=== PATIENT | male | born 1990 ===

== ENCOUNTER 2019-06-20 10:52 | Emergency (ER) | payer OTHER ==
[2019-06-20 11:12] VITALS: BP 108/65
[2019-06-20] MEDS ORDERED: Ibuprofen TAB* 600 MG PO ONE (11:31)
[2019-06-20] MEDS ORDERED: Tetan/Diph/Pertus SYR(Tdap)* 0.5 ML SYR(BOOSTRIX) use SYR contains LATEX IM ONE (11:31)
[2019-06-20] MEDS ORDERED: Lidocaine 1% MPF ** 5 ML VIAL INJ ONE (11:32)
--- NOTE | 2019-06-20 11:41 | UC ---
Hand/Wrist HPI - HPI Summary HPI Summary: The patient is a 28 yo male who sustained a laceration to the dorsum of his right index finger with a thread grinder. He was unaware it was plugged in ? last Td He is right handed - History Of Current Complaint Chief Complaint: UCLaceration Stated Complaint: WC-FOURTH FINGER LACERATION RT HAND Time Seen by Provider: 06/20/19 11:25 Hx Obtained From: Patient Onset/Duration: Sudden Onset Severity Initially: Mild Severity Currently: Mild Pain Intensity: 4 Pain Scale Used: 0-10 Numeric Character Of Pain: Sharp Aggravating Factor(s): Movement Alleviating Factor(s): Rest Related History: Occupational Injury, Dominant Hand Right Hands: 1 - laceration - Allergies/Home Medications Allergies/Adverse Reactions: Allergies Allergy/AdvReac Type Severity Reaction Status Date / Time Penicillins Allergy Hives/Diff. Verified 06/20/19 11:07 Breathing/I tching Home Medications: Home Medications NK [No Home Medications Reported] 06/20/19 [History Confirmed 06/20/19] PMH/Surg Hx/FS Hx/Imm Hx Previously Healthy: Yes Endocrine History: Dyslipidemia - Surgical History Surgical History: None - Family History Known Family History: Positive: Cardiac Disease, Hypertension, Diabetes - Social History Alcohol Use: Rare Substance Use Type: Marijuana Substance Use Comment - Amount & Last Used: daily Smoking Status (MU): Heavy Every Day Tobacco Smoker Type: Cigarettes Amount Used/How Often: 1/2 PPD - Immunization History Most Recent Tetanus Shot: unknown Review of Systems All Other Systems Reviewed And Are Negative: Yes Constitutional: Positive: Negative Skin: Positive: Negative Eyes: Positive: Negative ENT: Positive: Negative Respiratory: Positive: Negative Cardiovascular: Positive: Negative Gastrointestinal: Positive: Negative Genitourinary: Positive: Negative Motor: Positive: Negative Neurovascular: Positive: Negative Musculoskeletal: Positive: Negative Neurological: Positive: Negative Psychological: Positive: Negative Physical Exam Triage Information Reviewed: Yes Appearance: Well-Appearing, No Pain Distress, Well-Nourished Vital Signs: Initial Vital Signs Temp 99.3 F 06/20/19 11:07 Pulse 79 06/20/19 11:07 Resp 14 01/27/20 11:07 BP 108/65 06/20/19 11:07 Pulse Ox 99 06/20/19 11:07 Vital Signs Reviewed: Yes Eyes: Positive: Conjunctiva Clear ENT: Positive: Hearing grossly normal, Uvula midline. Negative: Nasal congestion, Nasal drainage, Trismus, Muffled voice, Hoarse voice Dental: Negative: Abscess @ Neck: Positive: Supple Respiratory: Positive: Lungs clear, Normal breath sounds, No respiratory distress, No accessory muscle use Cardiovascular: Positive: RRR, No Murmur Musculoskeletal: Positive: ROM Intact, No Edema Neurological: Positive: Alert Psychological Exam: Normal Skin Exam: Other - see image Procedures - Laceration/Wound Repair 1 Location: Other - Right ring finger- see diagram Description: Linear Anesthesia: Local, 1.0% Length, Depth and Shape: 1.2 cm long, 2 mm wide ,1-2 mm deep, LINEAR Betadine Prep?: Yes Irrigated w/ Saline (ccs): 200 Laceration/Wound Explored: clean Closure: Single Layer Suture Type: Nylon Number of Sutures: 3 - 5-0 nylon Diagnostics - Radiology No standard instances Radiology Interpretation Completed By: Radiologist Summary of Radiographic Findings: no fx or fb Hand/Wrist Course/Dx - Course Course Of Treatment: sterile prep TO 1 cc 1 % lido wound explored - no tendon lac noted see procedure note tolerated well - Differential Dx/Diagnosis Provider Diagnosis: Laceration of right ring finger Discharge ED - Sign-Out/Discharge Documenting (check all that apply): Patient Departure All imaging exams completed and their final reports reviewed: Yes - Discharge Plan Condition: Stable Disposition: HOME Patient Education Materials: Laceration (ED) Additional Instructions: gently clean with soap and water twice daily thin film of antibiotic oint keep bandaid on at work wear work gloves call for any question return for any problems return in about 10 days for suture removal - Billing Disposition and Condition Condition: STABLE Disposition: Home
== END 2019-06-20 12:57 | disposition home or self-care (01) ==
LOC: UCCORT 10:52
DX: S61.210A Laceration without foreign body of right index finger without damage to nail, initial encounter (principal); W31.89XA Contact with other specified machinery, initial encounter; Y92.9 Unspecified place or not applicable
CPT/HCPCS: 12001; 73140; 90471; 90715; 99212; A9270-GY; G0463

== ENCOUNTER 2019-06-30 17:05 | Emergency (ER) | payer OTHER ==
--- NOTE | 2019-06-30 19:45 | UC ---
HPI Wound/Suture Re-check - HPI Summary HPI Summary: 28 y/o male presents to the urgent care requesting suture removal. Pt reports he cut his Rt ring finger w/ a crystal flat grinder on 06/20/2019 and laceration repair was done here at the clinic. Pt denies pain, fever or signs of infection. He can move his finger w/o any difficulty. Pt denies numbness or tingling sensation over the Rt hand, SOb, chest pain, abdominal pain, N/V/D. - History Of Current Complaint Stated Complaint: SUTURE REMOVAL (PLACED HERE) Time Seen by Provider: 06/30/19 19:36 Hx Obtained From: Patient Onset/Duration: Sudden Onset, Lasting Weeks - 1 week ago laceration, Resolved Severity: Mild Pain Intensity: 0 Pain Scale Used: 0-10 Numeric Surgery Date: 06/20/19 - RT ring finger laceration repair - Allergies/Home Medications Allergies/Adverse Reactions: Allergies Allergy/AdvReac Type Severity Reaction Status Date / Time Penicillins Allergy Hives/Diff. Verified 06/30/19 19:43 Breathing/I tching PMH/Surg Hx/FS Hx/Imm Hx Previously Healthy: Yes - Pt denies PMHX - Surgical History Surgical History: None - Family History Known Family History: Positive: Cardiac Disease, Hypertension, Diabetes - Social History Occupation: Employed Full-time Lives: With Family Alcohol Use: Rare Substance Use Type: Marijuana Substance Use Comment - Amount & Last Used: daily Smoking Status (MU): Heavy Every Day Tobacco Smoker Type: Cigarettes Amount Used/How Often: 1/2 PPD - Immunization History Most Recent Tetanus Shot: 06/20/2019 Hx Tetanus, Diphtheria Vaccination: Yes Review of Systems All Other Systems Reviewed And Are Negative: Yes Constitutional: Positive: Negative Skin: Positive: Other - laceration repair over dorsum of the RT ring finger s/p injury w/ a crystal flat grinder. Eyes: Positive: Negative ENT: Positive: Negative Respiratory: Positive: Negative Cardiovascular: Positive: Negative Gastrointestinal: Positive: Negative Genitourinary: Positive: Negative Motor: Positive: Negative Neurovascular: Positive: Negative Musculoskeletal: Positive: Negative Neurological: Positive: Negative Psychological: Positive: Negative Is Patient Immunocompromised?: No Physical Exam Triage Information Reviewed: Yes Appearance: Well-Appearing, No Pain Distress, Well-Nourished Vital Signs Reviewed: Yes Eye Exam: Normal ENT Exam: Normal Dental Exam: Normal Neck exam: Normal Respiratory Exam: Normal Cardiovascular Exam: Normal Abdominal Exam: Normal Bowel Sounds: Positive: Present Musculoskeletal Exam: Normal Neurological Exam: Normal Psychological Exam: Normal Skin: Positive: Other - Wound healing well with crusting and moderate granulation over the dorsum of the Rt ring finger, non tender to palpation, [address] 3 sutures removed w/o any difficulty. Course/Dx - Course Course Of Treatment: 28 y/o male presents to the urgent care requesting suture removal. Pt reports he cut his Rt ring finger w/ a crystal flat grinder on 06/20/2019 and laceration repair was done here at the clinic. Pt denies pain, fever or signs of infection. He can move his finger w/o any difficulty. Pt denies numbness or tingling sensation over the Rt hand, SOb, chest pain, abdominal pain, N/V/D. Hx obtained. Wound healing well with crusting and moderate granulation over the dorsum side of the Rt ring finger, non tender to palpation, [address] 3 sutures removed w /o any difficulty. Pt tolerated well procedure. wound cleaned with sterile water and bacitracin applied over and cover with sterile gauze. Pt advised if redness, pain or fever develops to return to the urgent care or f/u with PCP for further treatment. D/c instructions explained. Pt understood and agreed with plan of care - Differential Dx - Laceration/Wound Differential Diagnoses: Cellulitis, Healing Wound, Suture Removal - Diagnosis Provider Diagnosis: Visit for suture removal Discharge ED - Sign-Out/Discharge Documenting (check all that apply): Patient Departure - d/c home All imaging exams completed and their final reports reviewed: No Studies - Discharge Plan Condition: Stable Disposition: HOME Patient Education Materials: Acute Wound Care (ED) Referrals: [facility] [place] [facility] [Outside] Additional Instructions: 1-Please apply topical antibiotic over the wound. Keep wound clean and dry 2-Take Ibuprofen or Tylenol PO q6-8hrs prn for pain or swelling. 4- If you develop fever or redness around your finger please return to the Urgent care or f/u w/ your PCP for further management. - Billing Disposition and Condition Condition: STABLE Disposition: Home
[2019-06-30 19:46] VITALS: BP 116/69
== END 2019-06-30 20:05 | disposition home or self-care (01) ==
LOC: UCCORT 17:05
DX: S61.214D Laceration without foreign body of right ring finger without damage to nail, subsequent encounter (principal); Z88.0 Allergy status to penicillin; F17.210 Nicotine dependence, cigarettes, uncomplicated; W31.89XD Contact with other specified machinery, subsequent encounter